=== PATIENT | female | born 1950 ===

== ENCOUNTER 2021-03-18 14:30 | Inpatient (IN) | payer OTHER ==
[~2021-03-18] VITALS: Ht 154.9 cm; Wt 63.5 kg
[2021-03-18] MEDS ORDERED: GLUMETZA1000 MG PO (17:12)
[2021-03-18] MEDS ORDERED: CARDIZEM PO (17:12)
[2021-03-18] MEDS ORDERED: COZAAR100 MG PO (17:13)
[2021-03-20] MEDS ORDERED: HYDROCHLOROTHIA25 MG (08:17)
[2021-03-20] MEDS ORDERED: ATORVASTATIN CA40 MG (08:17)
[2021-03-20] MEDS ORDERED: DILTIAZEM 24HR180 MG (08:17)
[2021-03-20] MEDS ORDERED: OMEPRAZOLE20 MG (08:18)
[2021-03-20] MEDS ORDERED: SYNTHROID112 MCG (08:18)
[2021-03-20] MEDS ORDERED: FAMOTIDINE40 MG (08:18)
== END 2021-03-24 20:21 | disposition home or self-care (01) | DRG 741 ==
LOC: SURH 03-19 13:00 → O/R 03-19 23:05 → SURG 03-20 08:30
PROVIDERS: ADMIT Specialist; ATTEND Specialist
PROC: 0UT20ZZ Resection of Bilateral Ovaries, Open Approach (ICD-10-PCS; 2021-03-19)
PROC: 0UT70ZZ Resection of Bilateral Fallopian Tubes, Open Approach (ICD-10-PCS; 2021-03-19)
PROC: 0UJD4ZZ Inspection of Uterus and Cervix, Percutaneous Endoscopic Approach (ICD-10-PCS; 2021-03-19)
PROC: 07BD4ZZ Excision of Aortic Lymphatic, Percutaneous Endoscopic Approach (ICD-10-PCS; 2021-03-19)
PROC: 07BC4ZZ Excision of Pelvis Lymphatic, Percutaneous Endoscopic Approach (ICD-10-PCS; 2021-03-19)
PROC: 0UT90ZZ Resection of Uterus, Open Approach (ICD-10-PCS; principal; 2021-03-19 13:00)
DX: C54.1 Malignant neoplasm of endometrium (principal); Z53.31 Laparoscopic surgical procedure converted to open procedure; N80.0 Endometriosis of uterus; D25.2 Subserosal leiomyoma of uterus; N83.8 Other noninflammatory disorders of ovary, fallopian tube and broad ligament; R59.9 Enlarged lymph nodes, unspecified; I10 Essential (primary) hypertension; E11.9 Type 2 diabetes mellitus without complications; E03.9 Hypothyroidism, unspecified; Z20.822 Contact with and (suspected) exposure to COVID-19